=== PATIENT | female | born 1975 | race African-American/Black ===

== ENCOUNTER 2024-07-06 04:07 | Day surgery (SDC) | payer OTHER ==
[2024-07-02 13:53] VITALS: BMI 43.0
[2024-07-06] MEDS ORDERED: MIDAZOLAM HCL 2 MG/2 ML SINGLE DOSE VIAL ONE ×3 (09:42→10:29)
[2024-07-06] MEDS: ceFAZolin SODIUM 1 GM VIAL IVPB ONE (10:15)
[2024-07-06] MEDS ORDERED: LACTATED RINGERS SOLUTION 1,000 ML IV SCH (11:00)
[2024-07-06] MEDS ORDERED: ACETAMINOPHEN INJECTION 100 ML ONE (11:56)
[2024-07-06] MEDS: ACETAMINOPHEN 1000 MG/100 ML BAG IVPB ONE (11:58)
[2024-07-06 14:37] VITALS: RESP 18
[2024-07-06] MEDS ORDERED: oxyCODONE HCL 5 MG TABLET ONE (15:09)
[2024-07-06] MEDS: oxyCODONE HCL 5 MG TABLET PO PRN (15:13)
[2024-07-06 15:28] VITALS: TEMP 98.2
[2024-07-06 16:51] VITALS: BP 104/59; PULSE 873
== END 2024-07-06 16:30 | disposition home or self-care (01) ==
LOC: JASU-SURG 04:07
PROVIDERS: ATTEND Obstetrics & Gynecology
PROC: 0UDB8ZZ Extraction of Endometrium, Via Natural or Artificial Opening Endoscopic (ICD-10-PCS; 2024-07-06)
PROC: 0U5B8ZZ Destruction of Endometrium, Via Natural or Artificial Opening Endoscopic (ICD-10-PCS; principal; 2024-07-06 09:00)
DX: N92.0 Excessive and frequent menstruation with regular cycle (principal); E66.01 Morbid (severe) obesity due to excess calories; Z68.41 Body mass index [BMI] 40.0-44.9, adult; E11.9 Type 2 diabetes mellitus without complications; Z79.84 Long term (current) use of oral hypoglycemic drugs
CPT/HCPCS: 81025; 82962; 88305-TC; 94760; J0131